=== PATIENT | male | born 1990 | race Caucasian/White ===

== ENCOUNTER 2016-11-09 18:53 | Emergency (ER) | payer SELFPAY ==
[~2016-11-09] VITALS: Ht 177.8 cm; Wt 78.0 kg
[2016-11-09 18:54] VITALS: BP 114/57; PULSE 84; RESP 18; TEMP 97.9; O2SAT 98
[2016-11-09] MEDS ORDERED: LIDOCAINE 1%/EPINEPHrine 1:100,000 SOLN 20 ML VIAL ONE (19:13)
[2016-11-09] MEDS ORDERED: BACT800T5 PO (19:27)
[2016-11-09] MEDS ORDERED: SULFAMETHOXAZOLE-TRIMETHOPRIM DS 800-160 MG TAB PO ONE (19:30)
--- NOTE | 2016-11-09 19:34 | PD ---
HPI Chief Complaint: Skin Problem Time Seen by Provider: 19:32 Travel History International Travel<30 days: No Contact w/Intl Traveler<30days: No Traveled to known affect area: No History of Present Illness HPI 26-year-old white male presents to emergency department with an abscess to his right upper arm for the past several days. He states that he's had a history of IV substance abuse. He denies any fever or chills. No drainage. Pain is moderate. PFSH Past Medical History Narrative Medical IV substance abuse, abscesses Tetanus Vaccination: < 5 Years Past Surgical History Narrative Surgical iNCISION AND DRAINAGE ABSCESS Social History Alcohol Use: No Tobacco Use: No Substance Use: Yes Allergies-Medications (Allergen,Severity, Reaction): Coded Allergies: No Known Allergies (Unverified , 11/09/16) Reported Meds & Prescriptions Reported Meds & Active Scripts Active Bactrim DS (Sulfamethoxazole-Trimethoprim) 800-160 Mg Tab 1 Tab PO BID Review of Systems Except as stated in HPI: all other systems reviewed are Neg Physical Exam Narrative GENERAL: This is a well-nourished, well-developed patient, in no apparent distress. SKIN: No rashes, ecchymoses or lesions. Warm and dry. Patient has a 3 x 3 cm erythematous fluctuant abscess to the inner right upper extremity area no surrounding cellulitis. Tender to touch. HEAD: Atraumatic. Normocephalic. EYES: PERRL, EOMI, no discharge or injection. No scleral icterus. EARS: Clear NOSE: Nasal turbinates appear normal. THROAT: Mucosa pink and moist. Airway patent. NECK: Trachea midline. supple, moves head freely. LUNGS: Clear to auscultation. CV: Regular in rhythm. ABDOMEN: Soft nontender. EXT: No clubbing cyanosis or edema. Data Data Last Documented VS Vital Signs Date Time Temp Pulse Resp B/P Pulse Ox O2 Delivery O2 Flow Rate FiO2 11/09/16 18:54 97.9 84 18 114/57 98 Orders Lidocai-Epi 1%-1:100,000 Inj (Xylocaine- (11/09/16 19:13) Sulfamet-Trimeth Ds 800-160 Mg (Bactrim (11/09/16 19:30) MDM Medical Decision Making Medical Screen Exam Complete: Yes Emergency Medical Condition: Yes Medical Record Reviewed: Yes Differential Diagnosis MDM: High Differential diagnoses: Abscess, folliculitis, cellulitis, lymphangitis, abrasion, contact dermatitis Narrative Course Patient's abscesses drained Procedures Procedure Narrative I&D abscess: After the risks and benefits were discussed the following procedure was performed. The skin is prepped and draped in the usual sterile fashion using Betadine. The abscess is anesthetized with 1% lidocaine with epinephrine. After adequate anesthesia, an 10 blade scalpel is used to make a 2 centimeter central incision. Perulant material is expressed. Loculations are broken up using curved Cori forceps. The wound is cleansed deeply using dilute Betadine and peroxide on Q-tips. The wound is packed open using iodoform gauze. A clean dressing is applied. The patient tolerated the procedure well. There was no complications. Follow-up instructions were given to the patient. Diagnosis Primary Impression: incision and drainage abscess right upper arm Patient Instructions: General Instructions Additional Instructions: Rest. Elevation. keep clean and dry. remove the packing in two days. Daily wound care with soap, water and Neosporin. Three Advil every 6 hours. Bactrim DS Follow-up with a primary care doctor in one week. Return to the ER for any problems. Med/Other Pt SpecificInfo: Prescription(s) given, Wound Care Scripts Sulfamethoxazole-Trimethoprim (Bactrim DS)800-160 Mg Tab1 Tab PO BID #20 TAB Prov:Roz Roman MD 11/09/16 Disposition: 01 DISCHARGE HOME Condition: Stable Marcos Villaseñor Nov 09, 2016 19:34
== END 2016-11-09 20:07 | disposition home or self-care (01) ==
LOC: NEPB 18:53
DX: L02.413 Cutaneous abscess of right upper limb (principal)
CPT/HCPCS: 10061

== ENCOUNTER 2017-02-27 00:03 | Emergency (ER) | payer SELFPAY ==
[~2017-02-27 00:03] MED LIST: BACT800T5 PO
[2017-02-27 00:07] VITALS: BP 120/77; PULSE 82; RESP 16; TEMP 99.1; O2SAT 98
[2017-02-27] MEDS ORDERED: BACT800T5 PO (01:14)
[2017-02-27] MEDS ORDERED: CEPH500C PO (01:14)
[2017-02-27] MEDS ORDERED: SULFAMETHOXAZOLE-TRIMETHOPRIM DS 800-160 MG TAB PO ONE (01:15)
[2017-02-27] MEDS ORDERED: CEPHALEXIN MONOHYDRATE 500 MG CAP PO ONE (01:15)
--- NOTE | 2017-02-27 01:20 | PD ---
HPI Chief Complaint: Skin Problem Time Seen by Provider: 01:15 Travel History International Travel<30 days: No Contact w/Intl Traveler<30days: No Traveled to known affect area: No History of Present Illness HPI 27-year-old white male presents to the emergency department with a intravenous drug abscess to the right antecubital fossa. He states that he had shot up 3 days ago. He states that he had noticed some increasing pain and swelling since then. He has had abscesses in the past. The pain is mild to moderate. He reports having subjective fever and chills earlier. He denies any drainage. No nausea vomiting. No numbness, tingling or weakness. PFSH Past Medical History Narrative Medical IV drug abuse, abscess Immunizations Current: No Tetanus Vaccination: > 5 Years Past Surgical History Narrative Surgical iNCISION AND DRAINAGE OF ABSCESS Social History Alcohol Use: No (RARELY) Tobacco Use: Yes Substance Use: Yes (IV DILAUDID) Allergies-Medications (Allergen,Severity, Reaction): Coded Allergies: No Known Allergies (Unverified , 11/09/16) Reported Meds & Prescriptions Reported Meds & Active Scripts Active Cephalexin 500 Mg Cap 500 Mg PO Q6H Bactrim DS (Sulfamethoxazole-Trimethoprim) 800-160 Mg Tab 1 Tab PO BID Review of Systems Except as stated in HPI: all other systems reviewed are Neg General / Constitutional: Positive: Fever, Chills Cardiovascular: No: Chest Pain or Discomfort, Palpitations Respiratory: No: Cough, Shortness of Breath Gastrointestinal: No: Nausea, Vomiting Musculoskeletal: Positive: Limited ROM, Edema, Pain, No: Myalgias, Arthralgias , Weakness Physical Exam Narrative GENERAL: This is a well-nourished, well-developed patient, in no apparent distress. SKIN: No rashes, ecchymoses or lesions. Warm and dry. HEAD: Atraumatic. Normocephalic. EYES: PERRL, EOMI, no discharge or injection. No scleral icterus. EARS: Clear NOSE: Nasal turbinates appear normal. THROAT: Mucosa pink and moist. Airway patent. NECK: Trachea midline. supple, moves head freely. LUNGS: Clear to auscultation. CV: Regular in rhythm. ABDOMEN: Soft nontender. EXT: No clubbing cyanosis or edema. Patient has a tender erythematous indurated area to the left antecubital fossa. This area measures approximately 2 x 2 centimeters. No fluctuance or pointing. Data Data Last Documented VS Vital Signs Date Time Temp Pulse Resp B/P Pulse Ox O2 Delivery O2 Flow Rate FiO2 02/27/17 00:07 99.1 82 16 120/77 98 Room Air Orders Sulfamet-Trimeth Ds 800-160 Mg (Bactrim (02/27/17 01:15) Cephalexin (Keflex) (02/27/17 01:15) MDM Medical Decision Making Medical Screen Exam Complete: Yes Emergency Medical Condition: Yes Medical Record Reviewed: Yes Differential Diagnosis MDM: High Differential diagnoses: Abscess, folliculitis, cellulitis, lymphangitis, abrasion, contact dermatitis Narrative Course An incision and drainage has been performed. Patient's given Bactrim DS and Keflex 500 mg by mouth. Procedures Procedure Narrative I&D abscess: After the risks and benefits were discussed the following procedure was performed. The skin is prepped and draped in the usual sterile fashion using Betadine. The abscess is anesthetized with 1% lidocaine with epinephrine and 0.5% Marcaine. After adequate anesthesia, an 15 blade scalpel is used to make a 1.5 centimeter central incision. A small amount of Perulant material is expressed. The wound is cleansed deeply using dilute Betadine and peroxide on Q-tips. The wound is packed open using iodoform gauze. A clean dressing is applied. The patient tolerated the procedure well. There was no complications. Follow- up instructions were given to the patient. Diagnosis Primary Impression: right antecubital fossa abscess Patient Instructions: General Instructions Additional Instructions: Rest. Elevation. keep clean and dry. remove the packing in two days. Daily wound care with soap, water and Neosporin. Three Advil every 6 hours. Keflex and Bactrim DS. Follow-up with a primary care doctor in 3 days. Return to the ER for any problems. Med/Other Pt SpecificInfo: Prescription(s) given, Wound Care Scripts Cephalexin 500 Mg Mgx849 Mg PO Q6H #28 CAP Prov:Marilee Zuniga MD 02/27/17 Sulfamethoxazole-Trimethoprim (Bactrim DS)800-160 Mg Tab1 Tab PO BID #14 TAB Prov:Marilee Zuniga MD 02/27/17 Disposition: 01 DISCHARGE HOME Condition: Stable Marcos Villaseñor Feb 27, 2017 01:19
== END 2017-02-27 02:01 | disposition home or self-care (01) ==
LOC: NEPD 00:03
DX: L02.413 Cutaneous abscess of right upper limb (principal); R50.9 Fever, unspecified; Z72.0 Tobacco use
CPT/HCPCS: 10061

== ENCOUNTER 2018-01-22 15:22 | Emergency (ER) | END 2018-01-22 17:25 | disposition home or self-care (01) | DX: M54.41 Lumbago with sciatica, right side (principal); Z72.0 Tobacco use | CPT/HCPCS: 96372; 99283; J1885; J2360 ==